=== PATIENT | female | born 1970 | race Two or more races ===

== ENCOUNTER 2020-07-14 02:08 | Emergency (ER) | payer OTHER ==
[~2020-07-14] VITALS: Ht 149.9 cm; Wt 115.7 kg
[2020-07-14] MEDS ORDERED: [UNRECOGNIZED DRUG - REMARK] PO (02:21)
[2020-07-14] MEDS ORDERED: DISCOVISC DISP S1 ML IO (02:21)
[2020-07-14] MEDS ORDERED: NEURONTIN800 MG PO (02:22)
[2020-07-14] MEDS ORDERED: SYNTHROID75 MCG PO (02:22)
[2020-07-14] MEDS ORDERED: HUMALOG100 UNIT/2 SUBCUTANEO (02:22)
[2020-07-14] MEDS ORDERED: LASIX40 MG PO (02:26)
== END 2020-07-14 04:33 ==
LOC: ER 02:08
DX: M54.5 Low back pain (principal)

== ENCOUNTER 2024-06-30 17:30 | Emergency (ER) | payer OTHER ==
[~2024-06-30] VITALS: Ht 149.9 cm; Wt 54.4 kg
[~2024-06-30 17:30] MED LIST: DISCOVISC DISP S1 ML IO; HUMALOG100 UNIT/2 SUBCUTANEO; LASIX40 MG PO; NEURONTIN800 MG PO; SYNTHROID75 MCG PO; [UNRECOGNIZED DRUG - REMARK] PO
[2024-06-30] MEDS ORDERED: TRAMADOL HCL 50 MG TABLET PO ONE (18:15)
[2024-06-30] MEDS ORDERED: KETOROLAC TROMETHAMINE 60 MG VIAL IM ONE ×2 (19:15)
== END 2024-06-30 20:57 | disposition home or self-care (01) ==
LOC: ER 17:30
DX: M79.605 Pain in left leg (principal); I10 Essential (primary) hypertension; E03.8 Other specified hypothyroidism; Z88.2 Allergy status to sulfonamides; Z91.041 Radiographic dye allergy status